=== PATIENT | male | born 1950 | race Caucasian/White ===

== ENCOUNTER 2016-10-20 06:31 | Day surgery (SDC) | payer MEDICARE ==
[2016-10-20] MEDS ORDERED: Dextrose 5%-Lactated Ringers 1,000 ML IV SCH (07:15)
[2016-10-20] MEDS ORDERED: fentaNYL 100 MCG/2 ML SDV ONE (07:24)
[2016-10-20] MEDS ORDERED: Propofol 200 MG/20 ML SDV ONE (07:26)
[2016-10-20 09:51] VITALS: BP 148/91
--- NOTE | 2016-10-24 13:22 | OR ---
DATE OF PROCEDURE: 10/20/2016 PREOPERATIVE DIAGNOSES: 1. History of rectal carcinoma. 2. History of leak at colorectal anastomosis. POSTOPERATIVE DIAGNOSES: 1. No recurrent neoplasia identified. 2. Evident closure of previous fistula site at colorectal anastomosis. OPERATIVE PROCEDURE: Flexible colonoscopy. ANESTHESIA: IV sedation. INDICATIONS FOR PROCEDURE: This is a 66-year-old status post rectal carcinoma. The patient underwent preoperative radiation chemotherapy and subsequently had a low anterior resection and developed an anastomotic leak, which was drained and clinically has subsequently healed. The plan is to proceed with a repeat colonoscopy at this time to evaluate the colorectal status. Potential risks of the procedure including bleeding and perforation were discussed, and the patient wishes to proceed. DETAILS OF PROCEDURE: The patient was taken to the operating room and placed in the left lateral decubitus position. IV sedation was administered, after which the initial digital rectal exam was performed and was unremarkable. Colonoscope was then passed eventually to the level of the cecum. FINDINGS: Included a normal low rectum at the colorectal anastomosis adjacent to it there was a now completely smooth normal-appearing epithelium. There did not appear to be any persistence of a defect or fistula adjacent to the anastomosis. The remainder of the colorectal exam is unremarkable. No additional polyps or other signs of neoplasia. The scope was then withdrawn. The above findings reconfirmed, and the procedure concluded. The patient was taken to the recovery room in satisfactory condition. Recommendation would be to likely repeat the colonoscopy in 1 year. Samm Rahman MD /[id number]
== END 2016-10-20 10:03 | disposition home or self-care (01) ==
LOC: JP.SDS 06:31
PROVIDERS: ATTEND Surgery
DX: Z08 Encounter for follow-up examination after completed treatment for malignant neoplasm (principal); Z85.048 Personal history of other malignant neoplasm of rectum, rectosigmoid junction, and anus; F32.9 Major depressive disorder, single episode, unspecified; F41.9 Anxiety disorder, unspecified; Z79.899 Other long term (current) drug therapy
CPT/HCPCS: 45378; J2704; J3010; J7042

== ENCOUNTER → 2017-10-18 | Day surgery (SDC) | payer MEDICARE ==
[~2017-10-18] MED LIST: Lactated Ringers 1,000 ML IV SCH; Midazolam 1 MG/ML 2 ML SDV ONE; Propofol 200 MG/20 ML SDV ONE; fentaNYL 100 MCG/2 ML SDV ONE
[2017-10-18 11:08] VITALS: BP 156/102
--- NOTE | 2017-10-18 13:13 | OR ---
DATE OF PROCEDURE: 10/18/2017 PREOPERATIVE DIAGNOSIS: History of rectal cancer. POSTOPERATIVE DIAGNOSES: 1. Diverticulosis. 2. History of rectal cancer. PROCEDURE: Colonoscopy to the cecum with biopsy of rectal anastomosis. SURGEON: Mandeep Flores MD. ANESTHESIA: IV anesthesia with monitored anesthesia care. INDICATION: This 67-year-old white male is here for a colonoscopy. About three or four years ago, he had a low anterior resection for colon cancer. He did receive preop radiation and chemotherapy. He says his last colonoscopic exam was done a year ago. I counseled him for the procedure including the risks and alternatives, and he gave his informed consent to proceed. DESCRIPTION OF PROCEDURE: The patient was placed in the left lateral decubitus position. IV anesthesia was administered by the Anesthesia Service. Time-out was held. A rectal exam was performed, which showed basically a hard mass presumably from his radiation treatment. This was circumferential and smooth. The flexible video Olympus colonoscope was introduced through his anus, up his rectum, out his colon all the way to the cecum. En route, we saw very few scattered left-sided diverticula. There was no bleeding or inflammation associated with them. Once the cecum was reached, the scope was slowly withdrawn, examining the mucosa throughout. No other mucosal abnormalities were noted. Because of the very hard nature of the rectum, we did obtain biopsies of this area. The scope was then removed. He tolerated the procedure well. Mandeep Flores MD /[id number]
== END ==
LOC: JP.SDS 07:46
PROVIDERS: ATTEND Surgery
DX: K52.9 Noninfective gastroenteritis and colitis, unspecified (principal); K57.30 Diverticulosis of large intestine without perforation or abscess without bleeding; Z85.048 Personal history of other malignant neoplasm of rectum, rectosigmoid junction, and anus; Z90.49 Acquired absence of other specified parts of digestive tract; Z92.21 Personal history of antineoplastic chemotherapy; Z92.3 Personal history of irradiation
CPT/HCPCS: 45380; 88305; J2250; J2704; J3010; J7120

== ENCOUNTER 2018-11-14 07:08 | Day surgery (SDC) | payer MEDICARE ==
[2018-11-14] MEDS ORDERED: fentaNYL 100 MCG/2 ML SDV ONE (07:30)
[2018-11-14] MEDS ORDERED: Propofol 200 MG/20 ML SDV ONE (07:30)
[2018-11-14] MEDS ORDERED: Lactated Ringers 1,000 ML IV SCH (07:30)
[2018-11-14] MEDS ORDERED: Midazolam 1 MG/ML 2 ML SDV ONE (07:30)
[2018-11-14 10:23] VITALS: BP 139/89
--- NOTE | 2018-11-15 08:36 | OR ---
DATE OF PROCEDURE: 11/14/2018 PREOPERATIVE DIAGNOSIS: History of rectal cancer. POSTOPERATIVE DIAGNOSES: Diverticulosis, appendiceal area polyp, history of rectal cancer. PROCEDURES PERFORMED: Colonoscopy to the cecum with biopsy resection of appendiceal polyp, biopsy of rectum. SURGEON: Mandeep Flores MD ANESTHESIA: IV anesthesia with monitored anesthesia care. INDICATION: This 68-year-old white male, about five years ago, was found to have a rectal cancer. This was treated with radiation and resection. He is having routine followup colonoscopies. A request is at this time made for a colonoscopy. I counseled him for this, including risks and alternatives, and he gave his informed consent to proceed. DESCRIPTION OF PROCEDURE: The patient was placed in the left lateral decubitus position. IV anesthesia was administered by the Anesthesia Service. Time-out was held. A rectal exam was performed with obvious radiation changes encountered. We were able to pass the scope up through the anus, rectum, and out all the way to the cecum. En route, we saw a few scattered left-sided diverticula. There was no bleeding or inflammation associated with them. The appendiceal orifice was noted to have what appeared to be polypoid tissue. This was removed with the biopsy forceps. The scope was then slowly withdrawn examining the mucosa throughout. No additional mucosal abnormalities were noted until we reached the distal rectum, where the anastomosis was seen. There were obvious changes from radiation. We did biopsy several areas here. The scope was then removed. He tolerated the procedure well. Mandeep Flores MD /[id number] [facility]
--- NOTE | 2018-11-20 14:12 | ANES ---
DATE OF SERVICE: 11/16/2018 ADDENDUM: I did give Mr. Weinstein a total of 200 mg of propofol for his procedure. Nehemias Aiken CRNA /[id number]
== END 2018-11-14 10:33 | disposition home or self-care (01) ==
LOC: JP.SDS 07:08
PROVIDERS: ATTEND Surgery
DX: Z12.11 Encounter for screening for malignant neoplasm of colon (principal); K63.5 Polyp of colon; K57.30 Diverticulosis of large intestine without perforation or abscess without bleeding; K62.6 Ulcer of anus and rectum; Z85.048 Personal history of other malignant neoplasm of rectum, rectosigmoid junction, and anus; Z92.3 Personal history of irradiation
CPT/HCPCS: 45380; 88305; J2250; J2704; J3010; J7120

== ENCOUNTER 2020-01-17 06:03 | Day surgery (SDC) | payer MEDICARE ==
[2020-01-17] MEDS ORDERED: Dextrose 5%-Lactated Ringers 1,000 ML IV SCH (06:30)
[2020-01-17] MEDS ORDERED: Propofol 200 MG/20 ML SDV ONE (07:00)
[2020-01-17] MEDS ORDERED: Sodium Chloride 0.9% 1,000 ML IV SCH (07:00)
[2020-01-17] MEDS ORDERED: fentaNYL 100 MCG/2 ML SDV ONE (07:00)
[2020-01-17] MEDS ORDERED: Midazolam 1 MG/ML 2 ML SDV ONE (07:00)
[2020-01-17 08:23] VITALS: PULSE 62
[2020-01-17 08:31] VITALS: BP 128/76
--- NOTE | 2020-01-19 12:08 | OR ---
DATE OF PROCEDURE: 01/17/2020 SURGEON: Samm Rahman MD PREOPERATIVE DIAGNOSIS: History of rectal carcinoma, status post low anterior resection with neoadjuvant radiation treatment. POSTOPERATIVE DIAGNOSIS: Extensive radiation effects in the rectum but without recurrent evident colorectal carcinoma or polyps. OPERATIVE PROCEDURE: Flexible colonoscopy. ANESTHESIA: IV sedation. INDICATIONS FOR PROCEDURE: A 69-year-old male, now over 5 years status post a low anterior resection for a quite low rectal carcinoma. The patient received neoadjuvant preoperative chemoradiation treatment as well as postoperative chemotherapy and has had no signs of recurrence. Plan is to proceed with a flexible colonoscopy with biopsies and/or polypectomy as indicated. Potential risks including bleeding and perforation were discussed, and the patient wishes to proceed. DETAILS OF PROCEDURE: The patient was taken to the operating room and placed in a left lateral decubitus position. IV sedation was administered, after which, the initial digital rectal exam was performed and this showed quite a bit of thickening of the anus and rectum consistent with a history of previous radiation treatment. Otherwise, no masses or polyps were seen per se. The scope was then passed into the rectum. Retroflexion was not attempted given the relatively narrowed area of the rectal vault. The rectum and the coloproctostomy were quite reddened, but this was a diffuse pattern, and there was no evidence to suggest any neoplastic recurrence. The coloproctostomy was somewhat narrowed but scope was able to be passed across that area. Small amount of bleeding occurred during the manipulation of the scope across the lower rectum and coloproctostomy. Otherwise above that, the remainder of the colon exam was entirely normal. There were no areas of diverticula, no areas of new polyps or other signs of neoplasia, and no areas of significant colitis. Scope was then withdrawn, the above findings were reconfirmed, and the procedure was then concluded. Plan at this point would be to continue Medical Oncology followup. The next colonoscopy could be in 1 year or per the Medical Oncology recommendations. Samm Rahman MD /[id number]
== END 2020-01-17 08:55 | disposition home or self-care (01) ==
LOC: JP.SDS 06:03
PROVIDERS: ATTEND Surgery
DX: Z12.11 Encounter for screening for malignant neoplasm of colon (principal); T66.XXXA Radiation sickness, unspecified, initial encounter; Z85.048 Personal history of other malignant neoplasm of rectum, rectosigmoid junction, and anus; Z98.890 Other specified postprocedural states
CPT/HCPCS: G0105; J2250; J2704; J3010; J7121

== ENCOUNTER 2022-03-15 07:59 | Day surgery (SDC) | payer MEDICARE ==
[~2022-03-15 07:59] MED LIST changes: -Lactated Ringers 1,000 ML IV SCH; -Midazolam 1 MG/ML 2 ML SDV ONE
[2022-03-15] MEDS: Dextrose 5%-Lactated Ringers 1,000 ML IV SCH (09:08)
[2022-03-15 12:31] VITALS: BP 129/70; PULSE 55
== END 2022-03-15 12:16 | disposition home or self-care (01) ==
LOC: JP.SDS 07:59
PROVIDERS: ATTEND Surgery
DX: Z12.11 Encounter for screening for malignant neoplasm of colon (principal); K62.7 Radiation proctitis; Z90.49 Acquired absence of other specified parts of digestive tract; Z98.0 Intestinal bypass and anastomosis status; Z85.048 Personal history of other malignant neoplasm of rectum, rectosigmoid junction, and anus
CPT/HCPCS: J2704; J3010; J7121

== ENCOUNTER 2024-02-20 07:43 | Day surgery (SDC) | payer MEDICARE ==
[~2024-02-20 07:43] MED LIST changes: -fentaNYL 100 MCG/2 ML SDV ONE; +fentaNYL 50 MCG/ML SDV ONE
[2024-02-20] MEDS: Sodium Chloride 0.9% 1,000 ML IV SCH (08:22)
[2024-02-20] MEDS ORDERED: Propofol 200 MG/20 ML SDV ONE (09:59)
[2024-02-20 11:51] VITALS: BP 115/78; PULSE 62
== END 2024-02-20 11:45 | disposition home or self-care (01) ==
LOC: JP.SDS 07:43
PROVIDERS: ATTEND Surgery
DX: Z12.11 Encounter for screening for malignant neoplasm of colon (principal); K63.89 Other specified diseases of intestine; K57.30 Diverticulosis of large intestine without perforation or abscess without bleeding; Z85.038 Personal history of other malignant neoplasm of large intestine
CPT/HCPCS: 00811; 45380; 88305; J2704; J3010; J7030